=== PATIENT | male | born 1950 | race Caucasian/White ===

== ENCOUNTER → 2016-12-04 | Outpatient (CLI) | payer MEDICARE, BC ==
[~2016-12-04] MED LIST: ALLEGRA-D TABLE1 TAB PO; ASPI325T6 PO; FAMVIR 500500 MG/TAB PO; FOLIC ACID0.4 MG PO; IRON325 MG PO; MULTI VITAMINS1 TAB PO; PREDNISONE20 MG PO; VTAMINC250TA PO
[2016-12-04 12:10] LABS: HIV 1/2 Antibodies Non-Reactive; HIV-1p24 Antigen Non-Reactive
== END ==
LOC: COL.LAB 09:20
PROVIDERS: Orthopaedic Surgery
DX: Z01.812 Encounter for preprocedural laboratory examination (principal); M17.12 Unilateral primary osteoarthritis, left knee

== ENCOUNTER → 2017-01-17 | Outpatient (CLI) | payer MEDICARE, BC | LOC: COL.VAS 09:26 | DX: M79.605 Pain in left leg (principal); Z98.1 Arthrodesis status ==

== ENCOUNTER 2017-01-29 19:54 | Emergency (ER) | payer MEDICARE, BC ==
[~2017-01-29] VITALS: Ht 193 cm; Wt 100.0 kg
[2017-01-29 19:57] VITALS: TEMP 98.3
[2017-01-29] MEDS ORDERED: MULTI VITAMINS1 TAB PO (20:07)
[2017-01-29] MEDS ORDERED: ALLEGRA-D TABLE1 TAB PO (20:08)
[2017-01-29] MEDS ORDERED: VTAMINC250TA PO (20:09)
[2017-01-29] MEDS ORDERED: FOLIC ACID0.4 MG PO (20:09)
[2017-01-29] MEDS ORDERED: ASPI325T6 PO (20:10)
[2017-01-29] MEDS ORDERED: IRON325 MG PO (20:10)
[2017-01-29] MEDS ORDERED: PREDNISONE20 MG PO (20:49)
[2017-01-29] MEDS ORDERED: FAMVIR 500500 MG/TAB PO (20:49)
[2017-01-29 21:12] VITALS: BP 176/80; PULSE 73
== END 2017-01-29 21:17 | disposition home or self-care (01) ==
LOC: COL.ER 19:54
DX: G51.0 Bell's palsy (principal)
CPT/HCPCS: J7512

== ENCOUNTER → 2017-08-05 | Outpatient (CLI) | payer MEDICARE, BC | LOC: COL.RAD 12:05 | DX: R79.1 Abnormal coagulation profile (principal); R07.9 Chest pain, unspecified | CPT/HCPCS: Q9967 ==

== ENCOUNTER → 2017-10-22 | Outpatient (CLI) | payer MEDICARE, BC ==
[2017-10-22 12:11] LABS: HIV 1/2 Antibodies Non-Reactive; HIV-1p24 Antigen Non-Reactive
== END ==
LOC: COL.LAB 10:17
PROVIDERS: Orthopaedic Surgery
DX: Z01.812 Encounter for preprocedural laboratory examination (principal); M17.12 Unilateral primary osteoarthritis, left knee

== ENCOUNTER 2022-05-07 06:36 | Day surgery (SDC) | payer MEDICARE ==
[~2022-05-07] VITALS: Ht 193 cm; Wt 96.2 kg
[2022-05-07] MEDS ORDERED: PRINIVIL10 MG PO (07:03)
[2022-05-07] MEDS ORDERED: Prevagen PO (07:05)
[2022-05-07 07:24] VITALS: BP 156/82; PULSE 77; TEMP 97.7
[2022-05-07 08:15] VITALS: BP 121/66; PULSE 70; TEMP 97
--- NOTE | 2022-05-07 08:24 | NUR ---
0815 - PT arrives from procedure w/ Vera RN, who settled the PT. Verbal room report then obtained. PT provided snack and drink; PT denies pain/nasuea and requested RN contact son for ride home. Call woodard remains within reach; non-slip socks remain on.
[2022-05-07 08:30] VITALS: BP 126/70; PULSE 67
--- NOTE | 2022-05-07 08:32 | NUR ---
0830 - PT has finished snack and drink; expressed desire to be dishcarged. Zachary PT visitor was brought in from waiting area per PT request. Call woodard remains within reach if needed.
[2022-05-07 08:45] VITALS: BP 131/58; PULSE 67
--- NOTE | 2022-05-07 08:50 | NUR ---
0845 - VSS. IV discontinued. Catheter tip intact and pressure bandage applied; no redness or swelling noted. PT refused RN assistance changing into personal clothes; call woodard remains within reach if needed and visitor remains present.
--- NOTE | 2022-05-07 09:08 | NUR ---
0900 - DC instructions and educational material reviewed w/ PT who verbalized understanding and signed the related paperwork. Questions answered to PT satisfaction. PT then dismissed from endo via wheelchair to the PT entrence by [facility] [facility]. PT has DC packet and personal belongings. PT transferred into the care of his son Zachary, who is driving private truck.
== END 2022-05-07 09:05 | disposition home or self-care (01) ==
LOC: SDCO 06:36
DX: Z12.11 Encounter for screening for malignant neoplasm of colon (principal); K57.30 Diverticulosis of large intestine without perforation or abscess without bleeding
CPT/HCPCS: J2704; J7120